=== PATIENT | female | born 1950 | race Caucasian/White ===

== ENCOUNTER 2022-08-09 09:04 | Inpatient (IN) | payer MEDICARE, MEDICAID ==
[~2022-08-09] VITALS: Ht 168.9 cm; Wt 52.3 kg
[~2022-08-09 09:04] MED LIST: AMA100C PO; ASPI81TA52 PO; BUPR150T22 PO; ESCI20TA29 PO; NAPR-706 PO; RAMI5CAP65 PO; RISP1TAB47 PO; TRIA1TAB5 PO
[2022-08-09] MEDS ORDERED: piperacillin/tazo 3.375gm/50ml 50 ML IV ONE (09:15)
[2022-08-09] MEDS ORDERED: vancomycin/NS 1 GM ADD-VANTAGE 250 ML IV ONE (09:15)
[2022-08-09] MEDS ORDERED: normal saline 1000ML IV soln IV ONE (09:15)
[2022-08-09] MEDS ORDERED: ondansetron/PF 4mg/2ml inj IV ONE (09:15)
[2022-08-09 09:43] LABS: BASOPHILS % (AUTO) 0.3 % (0-1); EOSINOPHILS # (AUTO) 0.1 X10'3 (0-0.9); HEMATOCRIT 39.1 % (35.0-45.0); HEMOGLOBIN 13.1 g/dl (12.0-16.0); LYMPHOCYTES # (AUTO) 1.1 X10'3 (1.1-4.8); LYMPHOCYTES % (AUTO) 10.2 % (21-51); MEAN CORPUSCULAR HEMOGLOBIN 30.8 PG (27.0-31.0); MEAN CORPUSCULAR HGB CONC 33.6 g/dL (33.0-36.5); MEAN CORPUSCULAR VOLUME 91.8 FL (78-98); MEAN PLATELET VOLUME 7.5 FL (7.4-10.4); MONOCYTES # (AUTO) 0.8 X10'3 (0-0.9); MONOCYTES % (AUTO) 7.7 % (2-12); NEUTROPHILS # (AUTO) 8.7 X10'3 (1.8-7.7); NEUTROPHILS % (AUTO) 80.8 % (42-75); PLATELET COUNT 333 X10'3 (140-440); RED BLOOD COUNT 4.26 X10'6 (4.20-5.60); RED CELL DISTRIBUTION WIDTH 14.1 % (11.5-14.5); WHITE BLOOD COUNT 10.8 X10'3 (4.5-11.0)
[2022-08-09 09:58] LABS: ALANINE AMINOTRANSFERASE 18 U/L (12-78); ALBUMIN 2.3 G/DL (3.4-5.0); ALBUMIN/GLOBULIN RATIO 0.6 (1.1-1.5); ALKALINE PHOSPHATASE 151 IU/L (46-116); ANION GAP 10 (8-16); ASPARTATE AMINO TRANSFERASE 16 U/L (10-37); BILIRUBIN,TOTAL 0.9 MG/DL (0.1-1.0); BLOOD UREA NITROGEN 20 MG/DL (7-18); BUN/CREATININE RATIO 33.9 (10.0-20.0); C-REACTIVE PROTEIN 15.77 MG/DL (0.0-0.5); CALCIUM 8.5 MG/DL (8.5-10.1); CHLORIDE 102 MMOL/L (99-107); CREATININE 0.59 MG/DL (0.40-0.90); GLUCOSE 123 MG/DL (70-104); MAGNESIUM 1.9 MG/DL (1.5-2.4); POTASSIUM 3.5 MMOL/L (3.5-5.1); SODIUM 136 MMOL/L (135-145); TOTAL CARBON DIOXIDE 24.5 MMOL/L (24-32); TOTAL PROTEIN 6.1 G/DL (6.4-8.2); eGFR > 90 ML/MIN
[2022-08-09] MEDS ORDERED: iohexol 300 MG/1 ML 50ml polymer ONE (10:15)
[2022-08-09] MEDS ORDERED: iohexol 300mg/ml 100ml inj. ONE (10:15)
[2022-08-09] MEDS: morphine 4 MG/ML inj SYRINge IV PRN ×2 (11:14→12:04)
[2022-08-09] MEDS ORDERED: magnesium 4gm in 100ml NS 100 ML IV PRN (11:20)
[2022-08-09] MEDS: dextrose 5%-1/2 normal saline 1,000 ML IV SCH (11:20)
[2022-08-09] MEDS ORDERED: diphenhydrAMINE 25mg capsule PO PRN (11:20)
[2022-08-09] MEDS ORDERED: magnesium 2GM in 50ml NS 50 ML IV PRN (11:20)
[2022-08-09] MEDS ORDERED: potassium Cl 20 mEq SR tablet PO PRN (11:20)
[2022-08-09] MEDS ORDERED: magnesium Cl slow-release 64mg tablet PO PRN (11:20)
[2022-08-09] MEDS ORDERED: ondansetron/PF 4mg/2ml inj IV PRN (11:20)
[2022-08-09] MEDS ORDERED: mag hydrox/Alum hydrox/simeth 30ml oral suspension PO PRN (11:20)
[2022-08-09] MEDS ORDERED: acetaminophen 325mg tablet PO PRN (11:20)
[2022-08-09] MEDS ORDERED: potassium Cl 40MEQ/1/2NS 520ml 520 ML IV PRN (11:20)
[2022-08-09] MEDS ORDERED: magnesium hydroxide 30ml (MOM) UD suspension PO PRN (11:20)
[2022-08-09] MEDS ORDERED: VANCOmycin 1250MG/NS 250ml Bag 250 ML IV ONE (11:45)
[2022-08-09 12:22] LABS: CLARITY,URINE CLOUDY (Clear); COLOR,URINE YELLOW (Yellow); GLUCOSE, URINE NEGATIVE (Neg); KETONES,URINE NEGATIVE (Neg); LEUKOCYTE ESTERASE ,URINE NEGATIVE (Neg); NITRITES, URINE POSITIVE (Neg); OCCULT BLOOD,URINE NEGATIVE (Neg); PH,URINE 5.5 (4.8-8.0); PROTEIN,URINE TRACE mg/dl (Neg); UROBILINOGEN,URINE 0.2 E.U/dL (0.2-1.0)
[2022-08-09 12:25] LABS: UA COLLECTION TYPE STRAIGHT CATH
[2022-08-09 12:28] LABS: MAGNESIUM 1.9 MG/DL (1.5-2.4); POTASSIUM 3.7 MMOL/L (3.5-5.1)
[2022-08-09 12:28] LABS: BACTERIA,URINE 4+ /HPF (Neg); RBC,URINE NONE SEEN /HPF (0-2); SQUAMOUS EPITHELIAL CELL,UR MANY /LPF (FEW)
[2022-08-09 12:29] LABS: CAL OXALATE CRYSTALS FEW /HPF (NEGATIVE); WBC CLUMPS,URINE FEW /HPF (NEGATIVE)
[2022-08-09] MEDS: NUT.TX.IMPAIRED DIGEST FXN (Ensure Clear) 237 ML PO SCH ×2 (13:00→18:00)
[2022-08-09] MEDS: piperacillin/tazo 3.375gm/50ml 50 ML IV SCH ×2 (17:35→23:28)
--- NOTE | 2022-08-09 19:05 | NUR ---
Recieved pt. report from BRIAN Raphael RN. Pt. brought to floor via hospital bed. Put in room 4788D.
[2022-08-09 19:30] VITALS: BP 158/80
[2022-08-09] MEDS ORDERED: NO HOME MEDS (19:31)
[2022-08-09] MEDS: K and/or MAG REPLACEMENT MC SCH (20:00)
[2022-08-09] MEDS: docusate sod 100mg capsule PO SCH (20:00)
[2022-08-09] MEDS: morphine 2 MG/ML inj. syringe IV PRN (20:47)
--- NOTE | 2022-08-09 21:15 | NUR ---
pt. unable to answer questions correctly. pt. has multiple wounds, bruises and scratches all over body. Hair matted. Addendum: 08/09/22 at 2116 by Kerry Ceballos RN Amended: Links added.
[2022-08-09 22:00] VITALS: BP 160/84
[2022-08-10] MEDS: dextrose 5%-1/2 normal saline 1,000 ML IV SCH ×3 (03:35→21:19)
[2022-08-10] MEDS: morphine 2 MG/ML inj. syringe IV PRN (03:45)
--- NOTE | 2022-08-10 06:23 | NUR ---
Problems reprioritized. Patient report given, questions answered & plan of care reviewed with RACHAEL Peralta.
[2022-08-10 06:32] LABS: BASOPHILS % (AUTO) 0.3 % (0-1); EOSINOPHILS # (AUTO) 0.2 X10'3 (0-0.9); EOSINOPHILS % (AUTO) 1.5 % (0-6); HEMATOCRIT 31.7 % (35.0-45.0); HEMOGLOBIN 10.7 g/dl (12.0-16.0); LYMPHOCYTES # (AUTO) 1.1 X10'3 (1.1-4.8); LYMPHOCYTES % (AUTO) 9.7 % (21-51); MEAN CORPUSCULAR HEMOGLOBIN 30.8 PG (27.0-31.0); MEAN CORPUSCULAR HGB CONC 33.8 g/dL (33.0-36.5); MEAN CORPUSCULAR VOLUME 91.1 FL (78-98); MEAN PLATELET VOLUME 7.7 FL (7.4-10.4); MONOCYTES # (AUTO) 0.6 X10'3 (0-0.9); MONOCYTES % (AUTO) 5.7 % (2-12); NEUTROPHILS # (AUTO) 9.2 X10'3 (1.8-7.7); NEUTROPHILS % (AUTO) 82.8 % (42-75); PLATELET COUNT 330 X10'3 (140-440); RED BLOOD COUNT 3.48 X10'6 (4.20-5.60); RED CELL DISTRIBUTION WIDTH 14.4 % (11.5-14.5); WHITE BLOOD COUNT 11.1 X10'3 (4.5-11.0)
[2022-08-10 06:36] LABS: ALANINE AMINOTRANSFERASE 16 U/L (12-78); ALBUMIN 1.7 G/DL (3.4-5.0); ALBUMIN/GLOBULIN RATIO 0.5 (1.1-1.5); ALKALINE PHOSPHATASE 110 IU/L (46-116); ANION GAP 6 (8-16); ASPARTATE AMINO TRANSFERASE 12 U/L (10-37); BILIRUBIN,TOTAL 0.6 MG/DL (0.1-1.0); BLOOD UREA NITROGEN 16 MG/DL (7-18); BUN/CREATININE RATIO 27.1 (10.0-20.0); CHLORIDE 105 MMOL/L (99-107); CREATININE 0.59 MG/DL (0.40-0.90); GLUCOSE 119 MG/DL (70-104); MAGNESIUM 1.6 MG/DL (1.5-2.4); POTASSIUM 3.3 MMOL/L (3.5-5.1); SODIUM 136 MMOL/L (135-145); TOTAL CARBON DIOXIDE 24.7 MMOL/L (24-32); TOTAL PROTEIN 4.8 G/DL (6.4-8.2); eGFR > 90 ML/MIN
--- NOTE | 2022-08-10 06:48 | NUR ---
Patient in room ORTHO 4015. I have received report from RACHAEL Payne and had the opportunity to ask questions and assume patient care.
[2022-08-10 07:00] VITALS: BP 178/93
[2022-08-10] MEDS: docusate sod 100mg capsule PO SCH ×2 (07:57→21:19)
[2022-08-10] MEDS: potassium Cl 20 mEq SR tablet PO PRN ×3 (07:57→19:14)
[2022-08-10] MEDS: piperacillin/tazo 3.375gm/50ml 50 ML IV SCH ×3 (07:58→23:19)
[2022-08-10] MEDS: enoxaparin 40mg/0.4ml syringe SUBCUT SCH (07:58)
[2022-08-10] MEDS: NUT.TX.IMPAIRED DIGEST FXN (Ensure Clear) 237 ML PO SCH ×2 (08:00→12:42)
[2022-08-10] MEDS: K and/or MAG REPLACEMENT MC SCH ×2 (08:01→19:21)
[2022-08-10 10:00] VITALS: BP 157/73
[2022-08-10] MEDS: vancomycin/NS 1 GM ADD-VANTAGE 250 ML IV SCH (12:09)
--- NOTE | 2022-08-10 15:06 | NUR ---
The dietitian recommended that we change the patient's oral supplements to ones that have more protein to help with wound healing. Made the change and notified .
--- NOTE | 2022-08-10 15:06 | NUR ---
PAGER ID: [phone] MESSAGE: Kathryn [phone] RE: Jeanne Gertrudis room 4015B - changed her oral supplements as recommended by dietitian.
--- NOTE | 2022-08-10 16:31 | NUR ---
Malnutrition consult: Pt unsure of wt loss though reports decreased appetite/PO intake per malnutrition risk screen with RN. Pt seen at bedside, difficult to obtain a lot of information from pt d/t mental status but pt reports UBW 120 lbs however pt unsure of when she last weighed that or if she's experienced any wt loss. RD obtained a bed scale, pt 59.6 kg (131 lbs, BMI 20.7) with three pillows and two blankets on the bed so ABW possibly close to reported UBW. Most recent scaled wt hx in EMR is 125 lbs taken 06/07/12. Pt unsure of her PO intake [employer]LOORING [employer]ST[employer]ER though given information in EMR it's likely that pt wasn't eating well, though pt reportedly was drinking nutrition shakes per H&P. Pt currently on a regular diet, documented with 25-50% PO intake today. Pt states her appetite is "fine". Pt with no documented significant decrease in muscle strength or edema. No apparent severe body wasting. Given limited information about PO intake and wt [employer]ORING [employer]ST[employer]ER and previously mentioned information pt lacks a minimum of two criteria for malnutrition, though nutrition status will be closely monitored during admit. Pt admit for osteomyelitis and decubitus ulcers. Per wound care note pt with an unstageable ulcer to right hip/shoulder with an MASD to dennise area. D/w RN recommendation for Ensure Enlive TID and Gagan smoothie BIDLD, which was also d/w pt who agreed to ONS. Pt denies food allergies, difficulty chewing/swallowing (also confirmed by RN), or food preferences at this time. Noted pt receiving D5-1/2NS at 60 mL/hr providing 245 kcal/day. Pt unsure of LBM, pt receiving routine bowel care with additional PRN bowel care available. Will continue to follow closely. Recommendations: 1) Continue regular diet 2) Ensure Enlive TID, Gagan shake BIDLD 3) Encourage PO intake; monitor for s/s of malnutrition 4) Routine bowel care 5) Weekly scaled weights; RD obtained bed scaled wt 08/10-59.6 kg (BMI 20.7) with three pillows and two blankets on bed, d/w RN Addendum: 08/10/22 at [address] Amended: Links added.
[2022-08-10] MEDS: HYDROcodone/acetaminophen 5mg/325mg tablet PO PRN ×2 (16:41→23:18)
[2022-08-10] MEDS: JUVEN Shake w/Arg/Glut/Ca2+Bmb (Juven 19.3gm) pkt 240ml PO SCH (17:30)
[2022-08-10] MEDS: lactose-reduced food (Ensure Enlive) - 237ml bottle PO SCH (17:46)
[2022-08-10 18:00] VITALS: BP 176/88
--- NOTE | 2022-08-10 18:00 | NUR ---
Patient in room ORTHO 4015. I have received report from RACHAEL Peralta and had the opportunity to ask questions and assume patient care.
--- NOTE | 2022-08-10 18:28 | NUR ---
Problems reprioritized. Patient report given, questions answered & plan of care reviewed with RACHAEL Yates.
[2022-08-10] MEDS: nystatin 15 GM powder TP SCH (21:20)
[2022-08-10 22:00] VITALS: BP 148/71
[2022-08-11] MEDS: HYDROcodone/acetaminophen 5mg/325mg tablet PO PRN ×2 (05:56→14:26)
[2022-08-11 06:00] VITALS: BP 133/70
--- NOTE | 2022-08-11 06:22 | NUR ---
Patient in room ORTHO 4015. I have received report from RACHAEL Yates and had the opportunity to ask questions and assume patient care.
--- NOTE | 2022-08-11 06:26 | NUR ---
Problems reprioritized. Patient report given, questions answered & plan of care reviewed with RACHAEL Grey.
[2022-08-11 06:46] LABS: BASOPHILS % (AUTO) 0.2 % (0-1); EOSINOPHILS # (AUTO) 0.4 X10'3 (0-0.9); EOSINOPHILS % (AUTO) 3.8 % (0-6); HEMATOCRIT 31.5 % (35.0-45.0); HEMOGLOBIN 10.4 g/dl (12.0-16.0); LYMPHOCYTES # (AUTO) 1.3 X10'3 (1.1-4.8); LYMPHOCYTES % (AUTO) 10.8 % (21-51); MEAN CORPUSCULAR HEMOGLOBIN 30.3 PG (27.0-31.0); MEAN CORPUSCULAR VOLUME 91.7 FL (78-98); MEAN PLATELET VOLUME 7.4 FL (7.4-10.4); MONOCYTES # (AUTO) 0.9 X10'3 (0-0.9); MONOCYTES % (AUTO) 7.4 % (2-12); NEUTROPHILS # (AUTO) 9.1 X10'3 (1.8-7.7); NEUTROPHILS % (AUTO) 77.8 % (42-75); PLATELET COUNT 324 X10'3 (140-440); RED BLOOD COUNT 3.44 X10'6 (4.20-5.60); RED CELL DISTRIBUTION WIDTH 14.6 % (11.5-14.5); WHITE BLOOD COUNT 11.7 X10'3 (4.5-11.0)
[2022-08-11 06:53] LABS: ALANINE AMINOTRANSFERASE 14 U/L (12-78); ALBUMIN 1.7 G/DL (3.4-5.0); ALBUMIN/GLOBULIN RATIO 0.5 (1.1-1.5); ALKALINE PHOSPHATASE 138 IU/L (46-116); ANION GAP 7 (8-16); ASPARTATE AMINO TRANSFERASE 20 U/L (10-37); BILIRUBIN,TOTAL 0.5 MG/DL (0.1-1.0); BLOOD UREA NITROGEN 14 MG/DL (7-18); BUN/CREATININE RATIO 22.2 (10.0-20.0); CALCIUM 7.9 MG/DL (8.5-10.1); CHLORIDE 104 MMOL/L (99-107); CREATININE 0.63 MG/DL (0.40-0.90); GLUCOSE 113 MG/DL (70-104); MAGNESIUM 1.6 MG/DL (1.5-2.4); POTASSIUM 3.7 MMOL/L (3.5-5.1); SODIUM 136 MMOL/L (135-145); TOTAL CARBON DIOXIDE 25.4 MMOL/L (24-32); TOTAL PROTEIN 4.9 G/DL (6.4-8.2); eGFR > 90 ML/MIN
[2022-08-11] MEDS: K and/or MAG REPLACEMENT MC SCH ×2 (08:00→19:30)
[2022-08-11] MEDS: nystatin 15 GM powder TP SCH ×2 (08:52→20:03)
[2022-08-11] MEDS: docusate sod 100mg capsule PO SCH ×2 (08:52→20:03)
[2022-08-11] MEDS: enoxaparin 40mg/0.4ml syringe SUBCUT SCH (08:52)
[2022-08-11] MEDS: piperacillin/tazo 3.375gm/50ml 50 ML IV SCH ×2 (08:53→16:21)
[2022-08-11] MEDS: lactose-reduced food (Ensure Enlive) - 237ml bottle PO SCH ×3 (08:53→18:24)
[2022-08-11 10:00] VITALS: BP 186/85
[2022-08-11] MEDS: JUVEN Shake w/Arg/Glut/Ca2+Bmb (Juven 19.3gm) pkt 240ml PO SCH ×2 (12:30→17:48)
[2022-08-11] MEDS: vancomycin/NS 1 GM ADD-VANTAGE 250 ML IV SCH (14:26)
[2022-08-11] MEDS ORDERED: LidoCAINE 2% Topical Jelly 11mL syringe TOP ONE (14:35)
[2022-08-11 18:00] VITALS: BP 109/60
--- NOTE | 2022-08-11 18:26 | NUR ---
Problems reprioritized. Patient report given, questions answered & plan of care reviewed with RACHAEL Joshi.
--- NOTE | 2022-08-11 18:30 | NUR ---
Patient in room ORTHO 4015. I have received report from SUE CANO and had the opportunity to ask questions and assume patient care.
[2022-08-11 22:00] VITALS: BP 133/94
[2022-08-12] MEDS: piperacillin/tazo 3.375gm/50ml 50 ML IV SCH ×3 (00:33→15:55)
[2022-08-12] MEDS: HYDROcodone/acetaminophen 5mg/325mg tablet PO PRN ×4 (04:37→18:55)
[2022-08-12 05:18] LABS: BASOPHILS % (AUTO) 0.3 % (0-1); EOSINOPHILS # (AUTO) 0.4 X10'3 (0-0.9); EOSINOPHILS % (AUTO) 4.2 % (0-6); HEMATOCRIT 30.6 % (35.0-45.0); HEMOGLOBIN 10.3 g/dl (12.0-16.0); LYMPHOCYTES # (AUTO) 1.3 X10'3 (1.1-4.8); LYMPHOCYTES % (AUTO) 12.8 % (21-51); MEAN CORPUSCULAR HEMOGLOBIN 30.7 PG (27.0-31.0); MEAN CORPUSCULAR HGB CONC 33.6 g/dL (33.0-36.5); MEAN CORPUSCULAR VOLUME 91.2 FL (78-98); MEAN PLATELET VOLUME 7.5 FL (7.4-10.4); MONOCYTES % (AUTO) 9.8 % (2-12); NEUTROPHILS # (AUTO) 7.3 X10'3 (1.8-7.7); NEUTROPHILS % (AUTO) 72.9 % (42-75); PLATELET COUNT 333 X10'3 (140-440); RED BLOOD COUNT 3.36 X10'6 (4.20-5.60); RED CELL DISTRIBUTION WIDTH 14.3 % (11.5-14.5)
[2022-08-12 05:19] LABS: ALANINE AMINOTRANSFERASE 20 U/L (12-78); ALBUMIN 1.7 G/DL (3.4-5.0); ALBUMIN/GLOBULIN RATIO 0.5 (1.1-1.5); ALKALINE PHOSPHATASE 177 IU/L (46-116); ANION GAP 5 (8-16); ASPARTATE AMINO TRANSFERASE 31 U/L (10-37); BILIRUBIN,TOTAL 0.6 MG/DL (0.1-1.0); BLOOD UREA NITROGEN 11 MG/DL (7-18); BUN/CREATININE RATIO 18.3 (10.0-20.0); CALCIUM 8.1 MG/DL (8.5-10.1); CHLORIDE 103 MMOL/L (99-107); GLUCOSE 95 MG/DL (70-104); MAGNESIUM 1.7 MG/DL (1.5-2.4); POTASSIUM 3.6 MMOL/L (3.5-5.1); SODIUM 134 MMOL/L (135-145); TOTAL CARBON DIOXIDE 25.9 MMOL/L (24-32); TOTAL PROTEIN 5.1 G/DL (6.4-8.2); eGFR > 90 ML/MIN
[2022-08-12] MEDS: morphine 2 MG/ML inj. syringe IV PRN ×2 (05:37→12:18)
[2022-08-12] MEDS: dextrose 5%-1/2 normal saline 1,000 ML IV SCH ×2 (05:42→22:40)
[2022-08-12 06:00] VITALS: BP 171/94
--- NOTE | 2022-08-12 06:22 | NUR ---
Problems reprioritized. Patient report given, questions answered & plan of care reviewed with SUE CANO.
--- NOTE | 2022-08-12 06:33 | NUR ---
Patient in room ORTHO 4015. I have received report from RACHAEL Joshi and had the opportunity to ask questions and assume patient care.
[2022-08-12] MEDS: K and/or MAG REPLACEMENT MC SCH ×2 (07:41→18:56)
[2022-08-12] MEDS: nystatin 15 GM powder TP SCH ×2 (07:44→21:09)
[2022-08-12] MEDS: docusate sod 100mg capsule PO SCH ×2 (07:44→18:55)
[2022-08-12] MEDS: enoxaparin 40mg/0.4ml syringe SUBCUT SCH (07:45)
[2022-08-12] MEDS: lactose-reduced food (Ensure Enlive) - 237ml bottle PO SCH ×3 (07:45→18:25)
[2022-08-12 10:00] VITALS: BP 162/74
[2022-08-12] MEDS ORDERED: VANCOMYCIN LEVEL IV ONE (11:30)
[2022-08-12] MEDS: vancomycin/NS 1 GM ADD-VANTAGE 250 ML IV SCH (11:50)
[2022-08-12] MEDS: JUVEN Shake w/Arg/Glut/Ca2+Bmb (Juven 19.3gm) pkt 240ml PO SCH ×2 (12:30→17:41)
[2022-08-12 18:00] VITALS: BP 162/69
--- NOTE | 2022-08-12 18:30 | NUR ---
Problems reprioritized. Patient report given, questions answered & plan of care reviewed with RACHAEL Winkler.
[2022-08-12 22:00] VITALS: BP 150/75
[2022-08-13] MEDS: piperacillin/tazo 3.375gm/50ml 50 ML IV SCH ×3 (00:13→21:09)
[2022-08-13] MEDS: morphine 2 MG/ML inj. syringe IV PRN (00:23)
[2022-08-13] MEDS: HYDROcodone/acetaminophen 5mg/325mg tablet PO PRN ×3 (03:52→21:12)
[2022-08-13 04:50] LABS: BASOPHILS % (AUTO) 0.2 % (0-1); EOSINOPHILS # (AUTO) 0.5 X10'3 (0-0.9); EOSINOPHILS % (AUTO) 4.5 % (0-6); HEMATOCRIT 30.5 % (35.0-45.0); HEMOGLOBIN 10.3 g/dl (12.0-16.0); LYMPHOCYTES % (AUTO) 9.7 % (21-51); MEAN CORPUSCULAR HEMOGLOBIN 30.6 PG (27.0-31.0); MEAN CORPUSCULAR HGB CONC 33.7 g/dL (33.0-36.5); MEAN CORPUSCULAR VOLUME 90.8 FL (78-98); MEAN PLATELET VOLUME 7.3 FL (7.4-10.4); MONOCYTES # (AUTO) 1.1 X10'3 (0-0.9); MONOCYTES % (AUTO) 9.9 % (2-12); NEUTROPHILS # (AUTO) 8.1 X10'3 (1.8-7.7); NEUTROPHILS % (AUTO) 75.7 % (42-75); PLATELET COUNT 350 X10'3 (140-440); RED BLOOD COUNT 3.36 X10'6 (4.20-5.60); WHITE BLOOD COUNT 10.7 X10'3 (4.5-11.0)
[2022-08-13 04:55] LABS: ALANINE AMINOTRANSFERASE 17 U/L (12-78); ALBUMIN 1.7 G/DL (3.4-5.0); ALBUMIN/GLOBULIN RATIO 0.5 (1.1-1.5); ALKALINE PHOSPHATASE 178 IU/L (46-116); ANION GAP 4 (8-16); ASPARTATE AMINO TRANSFERASE 26 U/L (10-37); BILIRUBIN,TOTAL 0.5 MG/DL (0.1-1.0); BLOOD UREA NITROGEN 12 MG/DL (7-18); BUN/CREATININE RATIO 18.5 (10.0-20.0); CHLORIDE 102 MMOL/L (99-107); CREATININE 0.65 MG/DL (0.40-0.90); GLUCOSE 125 MG/DL (70-104); MAGNESIUM 1.8 MG/DL (1.5-2.4); POTASSIUM 3.4 MMOL/L (3.5-5.1); SODIUM 134 MMOL/L (135-145); TOTAL CARBON DIOXIDE 28.3 MMOL/L (24-32); TOTAL PROTEIN 5.1 G/DL (6.4-8.2); eGFR 89 ML/MIN
[2022-08-13 06:00] VITALS: BP 194/71
--- NOTE | 2022-08-13 07:43 | NUR ---
Patient in room ORTHO 4015B. I have received report from RACHAEL FARMER and had the opportunity to ask questions and assume patient care.
[2022-08-13] MEDS: lactose-reduced food (Ensure Enlive) - 237ml bottle PO SCH ×3 (08:00→18:04)
[2022-08-13] MEDS: docusate sod 100mg capsule PO SCH ×2 (08:00→20:00)
[2022-08-13] MEDS: K and/or MAG REPLACEMENT MC SCH ×2 (08:00→20:00)
--- NOTE | 2022-08-13 09:54 | NUR ---
Reassessment: PO intake fluctuates, documented with average 46% PO intake of meals since 08/10. Per EMR pt not drinking Gagan shake and with average 75% PO intake of three Ensure Enlive though with refusal x 3, bringing average intake of Ensure down to 38%. Combined PO intake of meals and ONS is meeting 78% estimated energy needs and 73% estimated protein needs. Noted pt continues receiving D5-1/2 NS at 60 mL/hr providing 245 kcal/day. See additional nutrition interventions below that were d/w dietary. Recommend encouraging PO intake of Gagan shake to assist with wound healing, though discontinue if pt continues to not be receptive to it. Per EMR pt independent with meals though would likely benefit from assistance as pt documented to be A/O x 1 and confused with dementia. LBM 08/12, first BM since 08/08 per EMR. Hopefully PO intake will improve now that bowels are moving. Pt receiving routine bowel care with additional PRN bowel care available. Will continue to follow and make recommendations as approriate. Recommendations: 1) Continue regular diet 2) Ensure Enlive TID, Gagan shake BIDLD 3) Yogurt WB, Magic Cup BIDLD 4) Encourage PO intake of meals and ONS; assist with meals given A/O x 1 and confused with dementia 5) Monitor for s/s of malnutrition 6) Routine bowel care 7) Weekly scaled weights; RD obtained bed scaled wt 08/10-59.6 kg (BMI 20.7) with three pillows and two blankets on bed, d/w RN Addendum: 08/13/22 at [address] Amended: Links added.
[2022-08-13 10:00] VITALS: BP 155/77
[2022-08-13] MEDS: dextrose 5%-1/2 normal saline 1,000 ML IV SCH (11:13)
[2022-08-13] MEDS: enoxaparin 40mg/0.4ml syringe SUBCUT SCH (11:19)
[2022-08-13] MEDS: nystatin 15 GM powder TP SCH ×2 (11:28→20:00)
[2022-08-13] MEDS ORDERED: VANCOMYCIN 1,500MG in normal saline IV soln 300 ML IV SCH (12:00)
[2022-08-13] MEDS: JUVEN Shake w/Arg/Glut/Ca2+Bmb (Juven 19.3gm) pkt 240ml PO SCH ×2 (12:30→18:04)
--- NOTE | 2022-08-13 18:49 | NUR ---
Problems reprioritized. Patient report given, questions answered & plan of care reviewed with ESAU Rodríguez RN.
--- NOTE | 2022-08-13 18:50 | NUR ---
Patient in room ORTHO 4015. I have received report from RACHAEL Grissom and had the opportunity to ask questions and assume patient care. Patient resting comfortably, just finished dinner. She is incontinent and has had a large BM, I will clean up
[2022-08-13 22:00] VITALS: BP 183/93
[2022-08-14] MEDS: piperacillin/tazo 3.375gm/50ml 50 ML IV SCH ×2 (00:14→07:15)
[2022-08-14 06:00] VITALS: BP 185/90
--- NOTE | 2022-08-14 06:23 | NUR ---
Problems reprioritized. Patient report given, questions answered & plan of care reviewed with .
--- NOTE | 2022-08-14 06:28 | NUR ---
Patient in room ORTHO 4015. I have received report from Monica Parekh RN and had the opportunity to ask questions and assume patient care.
[2022-08-14 06:35] LABS: BASOPHILS % (AUTO) 0.3 % (0-1); EOSINOPHILS # (AUTO) 0.4 X10'3 (0-0.9); EOSINOPHILS % (AUTO) 3.8 % (0-6); HEMATOCRIT 29.3 % (35.0-45.0); HEMOGLOBIN 9.8 g/dl (12.0-16.0); LYMPHOCYTES % (AUTO) 8.5 % (21-51); MEAN CORPUSCULAR HEMOGLOBIN 30.2 PG (27.0-31.0); MEAN CORPUSCULAR HGB CONC 33.4 g/dL (33.0-36.5); MEAN CORPUSCULAR VOLUME 90.5 FL (78-98); MEAN PLATELET VOLUME 7.2 FL (7.4-10.4); MONOCYTES # (AUTO) 1.4 X10'3 (0-0.9); MONOCYTES % (AUTO) 11.9 % (2-12); NEUTROPHILS # (AUTO) 8.6 X10'3 (1.8-7.7); NEUTROPHILS % (AUTO) 75.5 % (42-75); PLATELET COUNT 371 X10'3 (140-440); RED BLOOD COUNT 3.24 X10'6 (4.20-5.60); RED CELL DISTRIBUTION WIDTH 14.2 % (11.5-14.5); WHITE BLOOD COUNT 11.4 X10'3 (4.5-11.0)
[2022-08-14 06:50] LABS: ALANINE AMINOTRANSFERASE 14 U/L (12-78); ALBUMIN 1.7 G/DL (3.4-5.0); ALBUMIN/GLOBULIN RATIO 0.5 (1.1-1.5); ALKALINE PHOSPHATASE 132 IU/L (46-116); ANION GAP 7 (8-16); ASPARTATE AMINO TRANSFERASE 23 U/L (10-37); BILIRUBIN,TOTAL 0.5 MG/DL (0.1-1.0); BLOOD UREA NITROGEN 8 MG/DL (7-18); CALCIUM 8.2 MG/DL (8.5-10.1); CHLORIDE 103 MMOL/L (99-107); CREATININE 0.57 MG/DL (0.40-0.90); GLUCOSE 104 MG/DL (70-104); SODIUM 137 MMOL/L (135-145); TOTAL CARBON DIOXIDE 27.4 MMOL/L (24-32); TOTAL PROTEIN 5.1 G/DL (6.4-8.2); eGFR > 90 ML/MIN
[2022-08-14 07:12] LABS: POTASSIUM 2.8 MMOL/L (3.5-5.1)
[2022-08-14] MEDS: dextrose 5%-1/2 normal saline 1,000 ML IV SCH (07:16)
[2022-08-14] MEDS: K and/or MAG REPLACEMENT MC SCH ×3 (08:00→20:00)
[2022-08-14] MEDS ORDERED: potassium Cl 20 mEq SR tablet PO PRN ×2 (08:05)
[2022-08-14] MEDS ORDERED: magnesium 2GM in 50ml NS 50 ML IV PRN (08:05)
[2022-08-14] MEDS ORDERED: magnesium 4gm in 100ml NS 100 ML IV PRN (08:05)
[2022-08-14] MEDS ORDERED: magnesium Cl slow-release 64mg tablet PO PRN (08:05)
[2022-08-14] MEDS ORDERED: potassium Cl 40MEQ/1/2NS 520ml 520 ML IV PRN (08:05)
[2022-08-14] MEDS: nystatin 15 GM powder TP SCH ×2 (08:21→23:38)
[2022-08-14] MEDS: enoxaparin 40mg/0.4ml syringe SUBCUT SCH (08:21)
[2022-08-14] MEDS: docusate sod 100mg capsule PO SCH ×2 (08:21→20:00)
[2022-08-14] MEDS: lactose-reduced food (Ensure Enlive) - 237ml bottle PO SCH ×3 (08:34→18:03)
[2022-08-14 08:43] LABS: MAGNESIUM 1.7 MG/DL (1.5-2.4)
[2022-08-14 10:00] VITALS: BP 174/94
[2022-08-14] MEDS: potassium Cl 40MEQ/1/2NS 520ml 520 ML IV SCH ×2 (10:20→23:52)
[2022-08-14] MEDS: HYDROcodone/acetaminophen 5mg/325mg tablet PO PRN ×2 (11:16→23:01)
[2022-08-14] MEDS: CefTRIAXone 2gm/D5W 50ml BAG 50 ML IV SCH (12:12)
[2022-08-14] MEDS: JUVEN Shake w/Arg/Glut/Ca2+Bmb (Juven 19.3gm) pkt 240ml PO SCH ×2 (12:30→18:03)
[2022-08-14] MEDS: metroNIDAZOLE-Flagyl 500mg/NS 100 ML IV SCH ×2 (12:58→22:00)
[2022-08-14 18:00] VITALS: BP 190/81
--- NOTE | 2022-08-14 18:36 | NUR ---
Problems reprioritized. Patient report given, questions answered & plan of care reviewed with RACHAEL Gayle.
--- NOTE | 2022-08-14 18:40 | NUR ---
Patient in room ORTHO 4015. I have received report from Babar FABIAN and had the opportunity to ask questions and assume patient care.
[2022-08-14 22:00] VITALS: BP 142/88
[2022-08-14] MEDS: morphine 2 MG/ML inj. syringe IV PRN (23:39)
[2022-08-15 06:00] VITALS: BP 180/95
--- NOTE | 2022-08-15 06:30 | NUR ---
Patient in room ORTHO 4015. I have received report from RACHAEL Gayle and had the opportunity to ask questions and assume patient care.
--- NOTE | 2022-08-15 06:45 | NUR ---
Problems reprioritized. Patient report given, questions answered & plan of care reviewed with Babar FABIAN.
[2022-08-15] MEDS: enoxaparin 40mg/0.4ml syringe SUBCUT SCH (07:29)
[2022-08-15] MEDS: docusate sod 100mg capsule PO SCH ×2 (07:29→19:39)
[2022-08-15] MEDS: lactose-reduced food (Ensure Enlive) - 237ml bottle PO SCH ×3 (08:00→18:05)
[2022-08-15] MEDS: nystatin 15 GM powder TP SCH ×2 (08:00→20:00)
[2022-08-15] MEDS: K and/or MAG REPLACEMENT MC SCH ×4 (08:00→20:00)
[2022-08-15 08:47] LABS: BASOPHILS % (AUTO) 0.3 % (0-1); EOSINOPHILS # (AUTO) 0.4 X10'3 (0-0.9); EOSINOPHILS % (AUTO) 3.5 % (0-6); HEMATOCRIT 30.4 % (35.0-45.0); HEMOGLOBIN 10.1 g/dl (12.0-16.0); LYMPHOCYTES # (AUTO) 1.4 X10'3 (1.1-4.8); LYMPHOCYTES % (AUTO) 13.1 % (21-51); MEAN CORPUSCULAR HEMOGLOBIN 30.2 PG (27.0-31.0); MEAN CORPUSCULAR HGB CONC 33.4 g/dL (33.0-36.5); MEAN CORPUSCULAR VOLUME 90.5 FL (78-98); MEAN PLATELET VOLUME 7.5 FL (7.4-10.4); MONOCYTES # (AUTO) 1.4 X10'3 (0-0.9); MONOCYTES % (AUTO) 13.4 % (2-12); NEUTROPHILS # (AUTO) 7.2 X10'3 (1.8-7.7); NEUTROPHILS % (AUTO) 69.7 % (42-75); PLATELET COUNT 398 X10'3 (140-440); RED BLOOD COUNT 3.36 X10'6 (4.20-5.60); RED CELL DISTRIBUTION WIDTH 14.4 % (11.5-14.5); WHITE BLOOD COUNT 10.4 X10'3 (4.5-11.0)
[2022-08-15 08:48] LABS: ALANINE AMINOTRANSFERASE 19 U/L (12-78); ALBUMIN 1.8 G/DL (3.4-5.0); ALBUMIN/GLOBULIN RATIO 0.5 (1.1-1.5); ALKALINE PHOSPHATASE 108 IU/L (46-116); ANION GAP 7 (8-16); ASPARTATE AMINO TRANSFERASE 21 U/L (10-37); BILIRUBIN,TOTAL 0.3 MG/DL (0.1-1.0); BLOOD UREA NITROGEN 6 MG/DL (7-18); BUN/CREATININE RATIO 11.3 (10.0-20.0); CALCIUM 8.3 MG/DL (8.5-10.1); CHLORIDE 104 MMOL/L (99-107); CREATININE 0.53 MG/DL (0.40-0.90); GLUCOSE 89 MG/DL (70-104); POTASSIUM 3.9 MMOL/L (3.5-5.1); SODIUM 138 MMOL/L (135-145); TOTAL CARBON DIOXIDE 27.4 MMOL/L (24-32); TOTAL PROTEIN 5.2 G/DL (6.4-8.2); eGFR > 90 ML/MIN
[2022-08-15] MEDS: metroNIDAZOLE-Flagyl 500mg/NS 100 ML IV SCH ×2 (08:52→20:47)
[2022-08-15] MEDS: CefTRIAXone 2gm/D5W 50ml BAG 50 ML IV SCH (08:59)
[2022-08-15] MEDS: morphine 2 MG/ML inj. syringe IV PRN ×2 (09:47→20:47)
[2022-08-15 11:00] VITALS: BP 200/87
--- NOTE | 2022-08-15 11:30 | NUR ---
Pt's BP at 1100 was 200/87. notified with no new orders at this time.
[2022-08-15] MEDS: JUVEN Shake w/Arg/Glut/Ca2+Bmb (Juven 19.3gm) pkt 240ml PO SCH ×2 (12:46→18:05)
[2022-08-15 18:00] VITALS: BP 176/99
--- NOTE | 2022-08-15 18:00 | NUR ---
Per CAREN Eckert, Dr Walker was notified of pt's BP at 1100, and no new orders were received.
--- NOTE | 2022-08-15 18:30 | NUR ---
I have reviewed and agree with interventions, assessments, and documentation by Shea Eckert LVN.
--- NOTE | 2022-08-15 20:10 | NUR ---
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
[2022-08-15 22:00] VITALS: BP 181/94
--- NOTE | 2022-08-16 00:05 | NUR ---
Problems reprioritized. Patient report given, questions answered & plan of care reviewed with RACHAEL Carlson.
[2022-08-16] MEDS: morphine 2 MG/ML inj. syringe IV PRN ×3 (01:25→16:48)
[2022-08-16 06:00] VITALS: BP 193/103
--- NOTE | 2022-08-16 06:30 | NUR ---
Report to Radha CANO.
[2022-08-16 06:49] LABS: APTT 31 SECONDS (22-32)
[2022-08-16 06:50] LABS: BASOPHILS # (AUTO) 0.1 X10'3 (0-0.2); BASOPHILS % (AUTO) 0.5 % (0-1); EOSINOPHILS # (AUTO) 0.4 X10'3 (0-0.9); EOSINOPHILS % (AUTO) 3.6 % (0-6); HEMOGLOBIN 9.9 g/dl (12.0-16.0); LYMPHOCYTES # (AUTO) 1.7 X10'3 (1.1-4.8); LYMPHOCYTES % (AUTO) 15.8 % (21-51); MEAN CORPUSCULAR HGB CONC 34.2 g/dL (33.0-36.5); MEAN CORPUSCULAR VOLUME 90.5 FL (78-98); MEAN PLATELET VOLUME 7.1 FL (7.4-10.4); MONOCYTES # (AUTO) 1.4 X10'3 (0-0.9); MONOCYTES % (AUTO) 12.8 % (2-12); NEUTROPHILS # (AUTO) 7.3 X10'3 (1.8-7.7); NEUTROPHILS % (AUTO) 67.3 % (42-75); PLATELET COUNT 430 X10'3 (140-440); RED CELL DISTRIBUTION WIDTH 14.2 % (11.5-14.5); WHITE BLOOD COUNT 10.9 X10'3 (4.5-11.0)
[2022-08-16] MEDS: docusate sod 100mg capsule PO SCH ×2 (07:04→20:00)
[2022-08-16] MEDS: lactose-reduced food (Ensure Enlive) - 237ml bottle PO SCH ×3 (07:04→18:30)
[2022-08-16 07:18] LABS: ALANINE AMINOTRANSFERASE 15 U/L (12-78); ALBUMIN 1.8 G/DL (3.4-5.0); ALBUMIN/GLOBULIN RATIO 0.5 (1.1-1.5); ALKALINE PHOSPHATASE 97 IU/L (46-116); ANION GAP 6 (8-16); ASPARTATE AMINO TRANSFERASE 16 U/L (10-37); BILIRUBIN,TOTAL 0.2 MG/DL (0.1-1.0); BLOOD UREA NITROGEN 9 MG/DL (7-18); BUN/CREATININE RATIO 17.6 (10.0-20.0); CALCIUM 8.1 MG/DL (8.5-10.1); CHLORIDE 104 MMOL/L (99-107); CREATININE 0.51 MG/DL (0.40-0.90); GLUCOSE 107 MG/DL (70-104); POTASSIUM 3.5 MMOL/L (3.5-5.1); SODIUM 139 MMOL/L (135-145); TOTAL PROTEIN 5.1 G/DL (6.4-8.2); eGFR > 90 ML/MIN
[2022-08-16] MEDS: K and/or MAG REPLACEMENT MC SCH ×3 (07:36→20:00)
[2022-08-16] MEDS: nystatin 15 GM powder TP SCH ×2 (07:48→20:00)
[2022-08-16] MEDS: CefTRIAXone 2gm/D5W 50ml BAG 50 ML IV SCH (07:48)
--- NOTE | 2022-08-16 08:32 | NUR ---
PRESSURE ULCER EDUCATION: DEFINITION: A pressure ulcer is an area of skin that breaks down when you stay in one position too long. The constant pressure against the skin reduces the blood flow to that area and the affected tissue dies. CAUSES: "Being bedridden or in a wheelchair "Fragile skin "Having a chronic condition, such as diabetes or vascular disease "Inability to move certain parts of your body without assistance "Older age "Incontinence of urine or stool SYMPTOMS: "A reddened area that DOES NOT turn white when pressed on - this can be the beginning of a pressure ulcer "A blister, deep sore or a crater - these can be advanced pressure ulcers FIRST AID: "Relieve the pressure on this area "Keep the area clean and dry "Call your primary doctor if you see any of the above symptoms "DO NOT massage the area "DO NOT use a donut shaped or ring shaped pillow- these actually interfere with the blood flow and cause complications PREVENTION: "Check for pressure ulcers everyday "Change position at least every two hours to relieve pressure "Use items that help relieve pressure- pillows, sheepskin, foam padding, and powders. "Keep skin clean and dry "Eat healthy well balanced meals "Exercise daily IF YOU SEE ANY OF THESE SYMPTOMS WHILE IN THE HOSPITAL - TELL YOUR NURSE IMMEDIATELY. IF YOU SEE ANY OF THESE SYMPTOMS WHILE AT HOME OR HAVE ANY QUESTIONS OR CONCERNS ABOUT PRESSURE ULCERS - CALL YOUR PRIMARY DOCTOR IMMEDIATELY. Addendum: 08/16/22 at 0832 by Irene Jara RN Amended: Links added.
[2022-08-16] MEDS: metroNIDAZOLE-Flagyl 500mg/NS 100 ML IV SCH ×2 (08:51→19:40)
[2022-08-16] MEDS: lisinopril 20mg tablet PO SCH (08:51)
[2022-08-16 10:00] VITALS: BP 171/86
[2022-08-16] MEDS ORDERED: VANCOMYCIN LEVEL IV ONE (11:30)
--- NOTE | 2022-08-16 11:57 | NUR ---
F/u 08/16: Pt PO continues to fluctuate though overall much improved past 3 days ~72% regular diet, ~78% Ensure Enlive TID, and ~67% Gagan smoothie BID meeting estimated needs. Pt currently NPO for OR since midnight last night pending debridement of shoulder and hip wounds per EMR. LBM 08/15 per EMR. Will monitor for further nutrition intervention needs this admit. Recommendations: 1) Continue regular diet 2) Ensure Enlive TID, Gagan shake BIDLD 3) Yogurt WB, Magic Cup BIDLD 4) Encourage PO intake of meals and ONS; assist with meals given A/O x 2 and confused with dementia 5) Monitor for s/s of malnutrition 6) Routine bowel care 7) Weekly scaled weights; RD obtained bed scaled wt /-59.6 kg (BMI 20.7) with three pillows and two blankets on bed, d/w RN Addendum: 08/16/22 at [address] Amended: Links added.
[2022-08-16] MEDS: JUVEN Shake w/Arg/Glut/Ca2+Bmb (Juven 19.3gm) pkt 240ml PO SCH ×2 (12:30→19:00)
--- NOTE | 2022-08-16 16:49 | NUR ---
Patient getting restless and pulled off hip dressing, stating she was in pain and hungry. RN gave morphine 27 minutes early and fed patient. patient now resting comfortably in bed, Will continue to monitor
[2022-08-16 18:00] VITALS: BP 175/83
[2022-08-16] MEDS: HYDROcodone/acetaminophen 5mg/325mg tablet PO PRN (19:40)
[2022-08-16] MEDS ORDERED: metroNIDAZOLE 500mg tablet PO SCH (20:00)
[2022-08-16 22:00] VITALS: BP 134/67
[2022-08-17 06:00] VITALS: BP 180/87
[2022-08-17 06:32] LABS: BASOPHILS % (AUTO) 0.5 % (0-1); EOSINOPHILS # (AUTO) 0.4 X10'3 (0-0.9); HEMATOCRIT 31.2 % (35.0-45.0); HEMOGLOBIN 10.5 g/dl (12.0-16.0); LYMPHOCYTES # (AUTO) 1.5 X10'3 (1.1-4.8); MEAN CORPUSCULAR HEMOGLOBIN 30.8 PG (27.0-31.0); MEAN CORPUSCULAR HGB CONC 33.8 g/dL (33.0-36.5); MEAN CORPUSCULAR VOLUME 91.3 FL (78-98); MEAN PLATELET VOLUME 7.2 FL (7.4-10.4); MONOCYTES # (AUTO) 1.8 X10'3 (0-0.9); MONOCYTES % (AUTO) 18.4 % (2-12); NEUTROPHILS # (AUTO) 6.1 X10'3 (1.8-7.7); NEUTROPHILS % (AUTO) 62.1 % (42-75); PLATELET COUNT 474 X10'3 (140-440); RED BLOOD COUNT 3.42 X10'6 (4.20-5.60); RED CELL DISTRIBUTION WIDTH 14.6 % (11.5-14.5); WHITE BLOOD COUNT 9.8 X10'3 (4.5-11.0)
[2022-08-17 06:45] LABS: ALANINE AMINOTRANSFERASE 15 U/L (12-78); ALBUMIN/GLOBULIN RATIO 0.6 (1.1-1.5); ALKALINE PHOSPHATASE 92 IU/L (46-116); ANION GAP 2 (8-16); ASPARTATE AMINO TRANSFERASE 18 U/L (10-37); BILIRUBIN,TOTAL 0.2 MG/DL (0.1-1.0); BLOOD UREA NITROGEN 12 MG/DL (7-18); BUN/CREATININE RATIO 21.8 (10.0-20.0); CALCIUM 8.2 MG/DL (8.5-10.1); CHLORIDE 105 MMOL/L (99-107); CREATININE 0.55 MG/DL (0.40-0.90); GLUCOSE 107 MG/DL (70-104); MAGNESIUM 2.2 MG/DL (1.5-2.4); POTASSIUM 3.5 MMOL/L (3.5-5.1); SODIUM 137 MMOL/L (135-145); TOTAL CARBON DIOXIDE 29.7 MMOL/L (24-32); TOTAL PROTEIN 5.5 G/DL (6.4-8.2); eGFR > 90 ML/MIN
[2022-08-17 07:13] LABS: LARGE PLATELETS FEW; PLATELET ESTIMATE INCREASED; TOTAL CELLS COUNTED 100
[2022-08-17] MEDS: K and/or MAG REPLACEMENT MC SCH ×2 (07:21→19:26)
[2022-08-17] MEDS: lisinopril 20mg tablet PO SCH (07:26)
[2022-08-17] MEDS: metroNIDAZOLE-Flagyl 500mg/NS 100 ML IV SCH ×2 (07:26→19:30)
[2022-08-17] MEDS: docusate sod 100mg capsule PO SCH ×2 (07:27→19:29)
[2022-08-17] MEDS: nystatin 15 GM powder TP SCH ×2 (07:27→19:30)
[2022-08-17] MEDS: levoTHYROXINE 25mcg tablet PO SCH (07:27)
[2022-08-17] MEDS: lactose-reduced food (Ensure Enlive) - 237ml bottle PO SCH ×3 (08:25→18:01)
[2022-08-17] MEDS: CefTRIAXone 2gm/D5W 50ml BAG 50 ML IV SCH (08:32)
[2022-08-17 10:00] VITALS: BP 177/87
[2022-08-17] MEDS: JUVEN Shake w/Arg/Glut/Ca2+Bmb (Juven 19.3gm) pkt 240ml PO SCH ×2 (13:06→17:47)
--- NOTE | 2022-08-17 17:47 | NUR ---
PAGER ID: [phone] MESSAGE: Jeanne Caba in [id number] - BP is 193/100. Pt has no PRNs for BP. -Kaitlin [phone]
[2022-08-17 18:00] VITALS: BP 198/100
--- NOTE | 2022-08-17 18:05 | NUR ---
Patient in room ORTHO 4015. I have received report from RACHAEL Madrigal and had the opportunity to ask questions and assume patient care.
--- NOTE | 2022-08-17 18:25 | NUR ---
Problems reprioritized. Patient report given, questions answered & plan of care reviewed with Trudy.
[2022-08-17] MEDS: HYDROchlorothiazide 12.5mg capsule PO SCH (19:29)
[2022-08-17] MEDS: HYDROcodone/acetaminophen 5mg/325mg tablet PO PRN (21:29)
[2022-08-17 22:00] VITALS: BP 167/75
[2022-08-18 05:00] VITALS: BP 183/107
[2022-08-18] MEDS: HYDROcodone/acetaminophen 5mg/325mg tablet PO PRN ×3 (05:14→20:33)
[2022-08-18 06:27] LABS: BASOPHILS # (AUTO) 0.1 X10'3 (0-0.2); BASOPHILS % (AUTO) 0.6 % (0-1); EOSINOPHILS # (AUTO) 0.4 X10'3 (0-0.9); EOSINOPHILS % (AUTO) 3.5 % (0-6); HEMATOCRIT 30.3 % (35.0-45.0); HEMOGLOBIN 10.4 g/dl (12.0-16.0); LYMPHOCYTES # (AUTO) 2.1 X10'3 (1.1-4.8); LYMPHOCYTES % (AUTO) 20.4 % (21-51); MEAN CORPUSCULAR HEMOGLOBIN 31.2 PG (27.0-31.0); MEAN CORPUSCULAR HGB CONC 34.3 g/dL (33.0-36.5); MEAN PLATELET VOLUME 7.7 FL (7.4-10.4); MONOCYTES # (AUTO) 1.4 X10'3 (0-0.9); MONOCYTES % (AUTO) 13.2 % (2-12); NEUTROPHILS # (AUTO) 6.5 X10'3 (1.8-7.7); NEUTROPHILS % (AUTO) 62.3 % (42-75); PLATELET COUNT 480 X10'3 (140-440); RED BLOOD COUNT 3.33 X10'6 (4.20-5.60); RED CELL DISTRIBUTION WIDTH 14.7 % (11.5-14.5); WHITE BLOOD COUNT 10.4 X10'3 (4.5-11.0)
--- NOTE | 2022-08-18 06:29 | NUR ---
Problems reprioritized. Patient report given, questions answered & plan of care reviewed with RACHAEL Prescott.
[2022-08-18 06:38] LABS: ALANINE AMINOTRANSFERASE 15 U/L (12-78); ALBUMIN 2.1 G/DL (3.4-5.0); ALBUMIN/GLOBULIN RATIO 0.6 (1.1-1.5); ALKALINE PHOSPHATASE 85 IU/L (46-116); ANION GAP 2 (8-16); ASPARTATE AMINO TRANSFERASE 17 U/L (10-37); BILIRUBIN,TOTAL 0.2 MG/DL (0.1-1.0); BLOOD UREA NITROGEN 15 MG/DL (7-18); BUN/CREATININE RATIO 24.6 (10.0-20.0); CALCIUM 8.3 MG/DL (8.5-10.1); CHLORIDE 103 MMOL/L (99-107); CREATININE 0.61 MG/DL (0.40-0.90); GLUCOSE 117 MG/DL (70-104); MAGNESIUM 2.2 MG/DL (1.5-2.4); POTASSIUM 3.6 MMOL/L (3.5-5.1); SODIUM 136 MMOL/L (135-145); TOTAL PROTEIN 5.8 G/DL (6.4-8.2); eGFR > 90 ML/MIN
--- NOTE | 2022-08-18 06:40 | NUR ---
Patient in room ORTHO 4015. I have received report from RACHAEL Yates and had the opportunity to ask questions and assume patient care.
[2022-08-18] MEDS: K and/or MAG REPLACEMENT MC SCH ×2 (08:00→20:00)
[2022-08-18] MEDS: lactose-reduced food (Ensure Enlive) - 237ml bottle PO SCH ×3 (08:00→17:36)
[2022-08-18 10:00] VITALS: BP 183/91
[2022-08-18] MEDS: HYDROchlorothiazide 12.5mg capsule PO SCH (11:45)
[2022-08-18] MEDS: metroNIDAZOLE-Flagyl 500mg/NS 100 ML IV SCH ×2 (11:45→20:32)
[2022-08-18] MEDS: CefTRIAXone 2gm/D5W 50ml BAG 50 ML IV SCH (11:45)
[2022-08-18] MEDS: levoTHYROXINE 25mcg tablet PO SCH (11:46)
[2022-08-18] MEDS: lisinopril 20mg tablet PO SCH (11:46)
[2022-08-18] MEDS: docusate sod 100mg capsule PO SCH ×2 (11:46→20:34)
[2022-08-18] MEDS: nystatin 15 GM powder TP SCH ×2 (11:47→20:34)
[2022-08-18] MEDS: JUVEN Shake w/Arg/Glut/Ca2+Bmb (Juven 19.3gm) pkt 240ml PO SCH ×2 (12:45→17:36)
[2022-08-18] MEDS ORDERED: hydrALAZINE 20mg/ml inj. IV PRN (15:40)
[2022-08-18 18:00] VITALS: BP 133/97
--- NOTE | 2022-08-18 18:10 | NUR ---
Problems reprioritized. Patient report given, questions answered & plan of care reviewed with RACHAEL Winkler.
[2022-08-18 22:00] VITALS: BP 149/86
[2022-08-19] VITALS (7 sets, daily range): BP systolic 110–176; BP diastolic 55–94
[2022-08-19 05:41] LABS: BASOPHILS # (AUTO) 0.1 X10'3 (0-0.2); BASOPHILS % (AUTO) 0.5 % (0-1); EOSINOPHILS # (AUTO) 0.3 X10'3 (0-0.9); EOSINOPHILS % (AUTO) 3.6 % (0-6); HEMATOCRIT 32.4 % (35.0-45.0); HEMOGLOBIN 10.8 g/dl (12.0-16.0); LYMPHOCYTES # (AUTO) 1.8 X10'3 (1.1-4.8); LYMPHOCYTES % (AUTO) 19.4 % (21-51); MEAN CORPUSCULAR HEMOGLOBIN 30.4 PG (27.0-31.0); MEAN CORPUSCULAR HGB CONC 33.5 g/dL (33.0-36.5); MEAN PLATELET VOLUME 7.8 FL (7.4-10.4); MONOCYTES # (AUTO) 1.4 X10'3 (0-0.9); MONOCYTES % (AUTO) 14.8 % (2-12); NEUTROPHILS # (AUTO) 5.8 X10'3 (1.8-7.7); NEUTROPHILS % (AUTO) 61.7 % (42-75); PLATELET COUNT 448 X10'3 (140-440); RED BLOOD COUNT 3.56 X10'6 (4.20-5.60); RED CELL DISTRIBUTION WIDTH 14.7 % (11.5-14.5); WHITE BLOOD COUNT 9.5 X10'3 (4.5-11.0)
[2022-08-19 06:34] LABS: ALANINE AMINOTRANSFERASE 10 U/L (12-78); ALBUMIN/GLOBULIN RATIO 0.5 (1.1-1.5); ALKALINE PHOSPHATASE 78 IU/L (46-116); ANION GAP 6 (8-16); ASPARTATE AMINO TRANSFERASE 13 U/L (10-37); BILIRUBIN,TOTAL 0.3 MG/DL (0.1-1.0); BLOOD UREA NITROGEN 19 MG/DL (7-18); BUN/CREATININE RATIO 32.8 (10.0-20.0); CALCIUM 8.3 MG/DL (8.5-10.1); CHLORIDE 101 MMOL/L (99-107); CREATININE 0.58 MG/DL (0.40-0.90); GLUCOSE 127 MG/DL (70-104); POTASSIUM 3.6 MMOL/L (3.5-5.1); SODIUM 137 MMOL/L (135-145); TOTAL CARBON DIOXIDE 29.6 MMOL/L (24-32); TOTAL PROTEIN 5.7 G/DL (6.4-8.2); eGFR > 90 ML/MIN
[2022-08-19] MEDS: K and/or MAG REPLACEMENT MC SCH ×2 (06:44→20:00)
[2022-08-19] MEDS: HYDROchlorothiazide 12.5mg capsule PO SCH (07:26)
[2022-08-19] MEDS: levoTHYROXINE 25mcg tablet PO SCH (07:26)
[2022-08-19] MEDS: docusate sod 100mg capsule PO SCH ×2 (07:26→19:17)
[2022-08-19] MEDS: metroNIDAZOLE-Flagyl 500mg/NS 100 ML IV SCH ×2 (07:27→19:17)
[2022-08-19] MEDS: lisinopril 20mg tablet PO SCH (07:27)
[2022-08-19] MEDS: lactose-reduced food (Ensure Enlive) - 237ml bottle PO SCH ×3 (07:27→18:17)
[2022-08-19] MEDS: nystatin 15 GM powder TP SCH ×2 (07:27→20:15)
[2022-08-19] MEDS: CefTRIAXone 2gm/D5W 50ml BAG 50 ML IV SCH (08:38)
[2022-08-19] MEDS: HYDROcodone/acetaminophen 5mg/325mg tablet PO PRN ×2 (08:42→19:17)
[2022-08-19] MEDS: JUVEN Shake w/Arg/Glut/Ca2+Bmb (Juven 19.3gm) pkt 240ml PO SCH ×2 (12:32→17:49)
--- NOTE | 2022-08-19 18:19 | NUR ---
Report given to Saige CANO's. Pt doing well. Resting comfortably.
[2022-08-20] MEDS: HYDROcodone/acetaminophen 5mg/325mg tablet PO PRN ×2 (05:16→13:26)
[2022-08-20 06:00] VITALS: BP 146/61
[2022-08-20 06:18] LABS: ALANINE AMINOTRANSFERASE 6 U/L (12-78); ALBUMIN 1.9 G/DL (3.4-5.0); ALBUMIN/GLOBULIN RATIO 0.5 (1.1-1.5); ALKALINE PHOSPHATASE 71 IU/L (46-116); ANION GAP 7 (8-16); ASPARTATE AMINO TRANSFERASE 13 U/L (10-37); BILIRUBIN,TOTAL 0.2 MG/DL (0.1-1.0); BLOOD UREA NITROGEN 17 MG/DL (7-18); BUN/CREATININE RATIO 28.3 (10.0-20.0); CALCIUM 8.3 MG/DL (8.5-10.1); CHLORIDE 103 MMOL/L (99-107); GLUCOSE 113 MG/DL (70-104); POTASSIUM 3.4 MMOL/L (3.5-5.1); SODIUM 138 MMOL/L (135-145); TOTAL CARBON DIOXIDE 28.5 MMOL/L (24-32); TOTAL PROTEIN 5.4 G/DL (6.4-8.2); eGFR > 90 ML/MIN
--- NOTE | 2022-08-20 06:21 | NUR ---
Patient in room ORTHO 4015. I have received report from lorena wasserman and had the opportunity to ask questions and assume patient care.
[2022-08-20 06:29] LABS: BASOPHILS # (AUTO) 0.1 X10'3 (0-0.2); BASOPHILS % (AUTO) 0.8 % (0-1); EOSINOPHILS # (AUTO) 0.3 X10'3 (0-0.9); EOSINOPHILS % (AUTO) 3.7 % (0-6); HEMATOCRIT 30.4 % (35.0-45.0); HEMOGLOBIN 10.2 g/dl (12.0-16.0); LYMPHOCYTES # (AUTO) 1.8 X10'3 (1.1-4.8); LYMPHOCYTES % (AUTO) 22.3 % (21-51); MEAN CORPUSCULAR HEMOGLOBIN 30.8 PG (27.0-31.0); MEAN CORPUSCULAR HGB CONC 33.7 g/dL (33.0-36.5); MEAN CORPUSCULAR VOLUME 91.6 FL (78-98); MEAN PLATELET VOLUME 7.7 FL (7.4-10.4); MONOCYTES # (AUTO) 1.3 X10'3 (0-0.9); MONOCYTES % (AUTO) 16.5 % (2-12); NEUTROPHILS # (AUTO) 4.6 X10'3 (1.8-7.7); NEUTROPHILS % (AUTO) 56.7 % (42-75); PLATELET COUNT 444 X10'3 (140-440); RED BLOOD COUNT 3.32 X10'6 (4.20-5.60); RED CELL DISTRIBUTION WIDTH 15.2 % (11.5-14.5); WHITE BLOOD COUNT 8.1 X10'3 (4.5-11.0)
[2022-08-20] MEDS: lisinopril 20mg tablet PO SCH (07:36)
[2022-08-20] MEDS: metroNIDAZOLE-Flagyl 500mg/NS 100 ML IV SCH (07:36)
[2022-08-20] MEDS: levoTHYROXINE 25mcg tablet PO SCH (07:36)
[2022-08-20] MEDS: docusate sod 100mg capsule PO SCH (07:37)
[2022-08-20] MEDS: HYDROchlorothiazide 12.5mg capsule PO SCH (07:37)
[2022-08-20] MEDS: lactose-reduced food (Ensure Enlive) - 237ml bottle PO SCH ×2 (07:47→13:02)
[2022-08-20] MEDS: K and/or MAG REPLACEMENT MC SCH (08:00)
--- NOTE | 2022-08-20 09:38 | NUR ---
Page Sent PAGER ID: [phone] MESSAGE: [phone] b marco black has a k of 3.4 can i get a order replacement. bird
[2022-08-20] MEDS: CefTRIAXone 2gm/D5W 50ml BAG 50 ML IV SCH (09:56)
[2022-08-20] MEDS: nystatin 15 GM powder TP SCH (09:59)
[2022-08-20 10:00] VITALS: BP 151/58
[2022-08-20] MEDS ORDERED: potassium Cl 20 mEq SR tablet PO PRN ×2 (10:45)
[2022-08-20] MEDS ORDERED: POTASSIUM BICARB 20meq eff tab 20 MEQ TABLET.EFF PO SCH ×2 (10:45)
[2022-08-20] MEDS ORDERED: potassium Cl 40MEQ/1/2NS 520ml 520 ML IV PRN ×2 (10:45)
[2022-08-20] MEDS ORDERED: POTASSIUM BICARB 20meq eff tab 20 MEQ TABLET.EFF PO PRN ×2 (10:50)
--- NOTE | 2022-08-20 12:06 | NUR ---
F/u 08/20: Pt PO regressing continues to fluctuate now ~34% avg meals, ~39% Ensure Enlive TID, and ~54% Gagan smoothies BID- decent given age/dementia hx w/ AOx1 though partially meeting estimated needs given wounds. Wound debridement cancelled since healing per MD notes. ERNESTO d/w supercharge repair supervisor who reports pt continues to be feeder and being transferred out today. LBM 08/17. Will continue to follow. Recommendations: 1) Continue regular diet 2) Ensure Enlive TID, Gagan shake BIDLD 3) Yogurt WB, Magic Cup BIDLD 4) Encourage PO intake of meals and ONS; assist with meals given A/O x 1 and confused with dementia 5) Monitor for s/s of malnutrition 6) Routine bowel care 7) Weekly scaled weights; ERNESTO obtained bed scaled wt 08/10-59.6 kg (BMI 20.7) with three pillows and two blankets on bed, d/w RACHAEL Addendum: 08/20/22 at [address] Amended: Links added.
[2022-08-20] MEDS: JUVEN Shake w/Arg/Glut/Ca2+Bmb (Juven 19.3gm) pkt 240ml PO SCH ×2 (13:02→17:43)
--- NOTE | 2022-08-20 17:17 | NUR ---
Problems reprioritized. Patient report given, questions answered & plan of care reviewed with Michael at [facility], said to ya ram and there will decide, also going with PICC for ABX.
[2022-08-20] MEDS: morphine 2 MG/ML inj. syringe IV PRN (17:33)
--- NOTE | 2022-08-20 17:46 | NUR ---
pt stable for dc, report called to [facility] to [facility], picc line and ram left in place per facility, all belongings taken with [facility] personnel, pt left on a gurney and in a medi van. all wound care and picture provided upon dc and pt was given a bed bath and a new gown.
[2022-08-20 17:48] VITALS: BP 121/51
[2022-08-20] MEDS ORDERED: K and/or MAG REPLACEMENT MC SCH (20:00)
== END 2022-08-20 17:40 | DRG 539 ==
LOC: ER 09:04 → ED HOLD 11:25 → ORTHO 4S 19:00
PROVIDERS: ADMIT Internal Medicine; ATTEND Internal Medicine
PROC: B4201ZZ Computerized Tomography (CT Scan) of Abdominal Aorta using Low Osmolar Contrast (ICD-10-PCS; principal; 2022-08-09)
PROC: B4241ZZ Computerized Tomography (CT Scan) of Superior Mesenteric Artery using Low Osmolar Contrast (ICD-10-PCS; 2022-08-09)
PROC: B4281ZZ Computerized Tomography (CT Scan) of Bilateral Renal Arteries using Low Osmolar Contrast (ICD-10-PCS; 2022-08-09)
PROC: B42C1ZZ Computerized Tomography (CT Scan) of Pelvic Arteries using Low Osmolar Contrast (ICD-10-PCS; 2022-08-09)
PROC: B42H1ZZ Computerized Tomography (CT Scan) of Bilateral Lower Extremity Arteries using Low Osmolar Contrast (ICD-10-PCS; 2022-08-09)
PROC: B4211ZZ Computerized Tomography (CT Scan) of Celiac Artery using Low Osmolar Contrast (ICD-10-PCS; 2022-08-09)
DX: M86.8X4 Other osteomyelitis, hand (principal); R53.2 Functional quadriplegia; E46 Unspecified protein-calorie malnutrition; N39.0 Urinary tract infection, site not specified; Z68.1 Body mass index [BMI] 19.9 or less, adult; B96.20 Unspecified Escherichia coli [E. coli] as the cause of diseases classified elsewhere; B96.4 Proteus (mirabilis) (morganii) as the cause of diseases classified elsewhere; L89.219 Pressure ulcer of right hip, unspecified stage; E87.6 Hypokalemia; G35 Multiple sclerosis; F03.90 Unspecified dementia, unspecified severity, without behavioral disturbance, psychotic disturbance, mood disturbance, and anxiety; F41.9 Anxiety disorder, unspecified; F32.A Depression, unspecified; I10 Essential (primary) hypertension; L89.110 Pressure ulcer of right upper back, unstageable; Z74.01 Bed confinement status; Z85.3 Personal history of malignant neoplasm of breast; Z90.13 Acquired absence of bilateral breasts and nipples; Z99.3 Dependence on wheelchair
CPT/HCPCS: 36415; 36569; 70450; 71045; 73201; 74177; 76942; 80053; 80202; 81001; 82607; 83605; 83735; 84132; 84145; 84443; 85007; 85025; 85610; 85651; 85730; 86140; 87040; 87070; 87075; 87077; 87081; 87088; 87186; 93005; 96365; 96375; 97110; 97161; 97530; 99285; A4649; A6196; A6212; A6213; A6250; A6260; A6402; A6449; G0378; J0360; J0696; J1650; J2270; J2405; J2543; J3370; J3480; J3490; J7030; J7040; J7042; Q0163; Q9967